=== PATIENT | female | born 1995 | race Hispanic/Latino ===

== ENCOUNTER 2019-03-01 14:39 | Inpatient (IN) | payer BC ==
[2019-03-01 16:03] LABS: #Basophils 0.1 thou/uL (0.0-0.2); #Eosinphils 0.1 thou/uL (0.0-0.7); #Lymphocytes 3.2 thou/uL (1.20-3.40); #Monocytes 0.7 thou/uL (0.11-0.59); #Neutrophils 5.3 thou/uL (1.40-6.50); %Basophils 0.7 % (0.0-1.0); %Eosinophils 1.4 % (0.0-10.0); %Lymphocytes 34.2 % (21.0-51.0); %Monocytes 7.2 % (0.0-10.0); %Neutrophils 56.5 % (42.0-75.0); Hemoglobin 13.7 g/dL (12.0-16.0); Mean Corpuscular HGB CONC 34.1 g/dL (32.0-36.0); Mean Corpuscular Hemoglobin 31.3 pg (27.0-31.0); Mean Corpuscular Volume 91.8 fL (78.0-98.0); Mean Platelet Volume 8.8 fL (7.4-10.4); Platelet Count 331 thou/uL (130-400); Red Blood Cell (RBC) Count 4.37 mill/uL (4.20-5.40); White Blood Cell (WBC) Count 9.3 thou/uL (4.8-10.8)
[2019-03-01 16:06] LABS: BHCG - Serum Negative (NEGATIVE); Pregs Control Background? CLEAR/WHITE (CLR/WHITE); Pregs Control Bar Appear? YES (CONTROL BAR)
[2019-03-01 16:28] LABS: ALT (SGPT) 199 U/L (8-55); AST (SGOT) 731 U/L (5-34); Albumin 4.6 g/dL (3.5-5.0); Alkaline Phosphatase 44 U/L (40-110); Anion Gap 12 mmol/L (10-20); BUN (Urea Nitrogen) 11 mg/dL (7.0-18.7); Bilirubin, Total 0.5 mg/dL (0.2-1.2); Calc. Creatinine Clearance 0 mL/min (70-130); Calcium 9.6 mg/dL (7.8-10.44); Carbon Dioxide 29 mmol/L (22-29); Chloride 102 mmol/L (98-107); Estimated GFR-MDRD Greater than 90; Globulin 3.2 g/dL (2.4-3.5); Glucose 97 mg/dL (70-105); Potassium 3.8 mmol/L (3.5-5.1); Protein, Total 7.8 g/dL (6.0-8.3); Sodium 139 mmol/L (136-145)
[2019-03-01] MEDS ORDERED: Morphine 4 MG/ML VIAL ONE (16:47)
[2019-03-01 17:10] LABS: CK (CPK) Greater than 40000 U/L (29-168)
[2019-03-01 17:16] LABS: Bacteria/HPF None Seen HPF (None Seen); Bilirubin Negative (Negative); Blood, Urine 3+ (Negative); Clarity Clear (Clear); Glucose, Urine (Dipstick) Normal (Negative); Leukocyte Negative Leu/uL (Negative); Nitrite Negative (Negative); Protein, Urine (Dipstick) 20 mg/dL (Neg-Trace); RBC/HPF 0-3 HPF (0-3); Urobilinogen Normal mg/dL (Less than 2); WBC/HPF 0-3 HPF (0-3)
[2019-03-01 18:08] LABS: HBCM Index 0.07 S/CO (0-0.79); HBSAg Index 0.18 S/CO (0-0.99); Hep A IgM AB Non-Reactive (NonReactive); Hep B Surf Ag Non-Reactive S/CO (NonReactive); Hep C IgG Ab Non-Reactive (NonReactive); Hep C Index 0.04 S/CO (0-0.79); Hepatitis B Core IgM Abs Non-Reactive (NonReactive)
[2019-03-01 19:11] VITALS: BMI 25.4
[2019-03-01] MEDS ORDERED: Sodium Chloride 0.9% 1,000 ML IV SCH (19:15)
[2019-03-01] MEDS ORDERED: Acetaminophen 325 MG TAB PO PRN ×2 (19:15→20:34)
[2019-03-01] MEDS ORDERED: HYDROcodone/Acetaminophen 5/325 mg Tablet PO PRN ×2 (19:15)
[2019-03-01] MEDS ORDERED: Ondansetron ODT 4 MG TAB SL PRN (19:15)
[2019-03-01] MEDS ORDERED: Ondansetron PF 4 MG/2 ML Vial IVP PRN (19:15)
[2019-03-01] MEDS ORDERED: Senokot S 8.6-50 MG TAB PO PRN (20:34)
[2019-03-01] MEDS ORDERED: Morphine 4 MG/ML VIAL SLOW IVP PRN (20:36)
[2019-03-01] MEDS: Famotidine 20 MG TAB PO SCH (21:05)
[2019-03-01] MEDS: Sodium Chloride 0.9% 1,000 ML IV SCH (21:05)
[2019-03-01] MEDS: Melatonin 3 MG TAB PO PRN (22:25)
[2019-03-02] MEDS ORDERED: Zolpidem Tartrate 5 MG TAB PO SCH ×3 (00:30→20:45)
--- NOTE | 2019-03-02 00:31 | PDOC.HHP ---
Hospitalist HPI - History of Present Illness Sore legs, elevated CK History of Present Illness: Patient reports going to a 1 hour cycling class on Wednesday and then drove 3 hours back to [place]. Reports her fluid intake has been diminished in the last several days. Reports mild leg pain the day after exercising but then started to hurt much worse. Today she reports a burning sensation and found it difficult to walk any distances without pain. She went to urgent care today, lab work was done and then she was called to come to the ED for an elevated CK and liver enzymes. Denies this happened in the past. ED Course: Patient was given 2L NS and morphine and then admitted to medical for further management. Hospitalist ROS - Review of Systems Constitutional: denies: fever, chills, sweats, weakness, malaise, other Eyes: denies: pain, vision change, conjunctivae inflammation, eyelid inflammation, redness, other ENT: denies: ear pain, ear discharge, nose pain, nose discharge, nose congestion , mouth pain, mouth swelling, throat pain, throat swelling, other Respiratory: denies: cough, dry, shortness of breath, hemoptysis, SOB with excertion, pleuritic pain, sputum, wheezing, other Cardiovascular: denies: chest pain, palpitations, orthopnea, paroxysmal noc. dyspnea, edema, light headedness, other Gastrointestinal: denies: nausea, vomiting, abdominal pain, diarrhea, constipation, melena, hematochezia, other Genitourinary: reports: other (Reports coffee colored urine this am but now clear) Musculoskeletal: reports: leg pain Skin: denies: rash, lesions, naldo, bruising, other Neurological: reports: weakness - Medication Medications: Active Medications Generic Name Dose Route Start Last Admin Trade Name Freq PRN Reason Stop Dose Admin Famotidine 20 mg 03/01/19 21:00 03/01/19 21:05 Pepcid PO 20 mg BID BO Administration Sodium Chloride 1,000 mls @ 200 mls/hr 03/01/19 20:45 03/01/19 21:05 Normal Saline 0.9% IV 1,000 mls .Q5H BO Administration Melatonin 3 mg 03/01/19 22:02 03/01/19 22:25 Melatonin PO 3 mg HS PRN Administration Insomnia Morphine Sulfate 4 mg 03/01/19 20:36 03/01/19 21:04 Morphine SLOW IVP 4 mg Q4H PRN Administration Moderate to Severe Pain (6-10) Hospitalist History - Past Medical History Source: patient Cardiac: reports: no pertinent history Pulmonary: reports: no pertinent history MANAGER STAFFING: reports: no pertinent history Gastrointestinal: reports: no pertinent history Heme/Onc: reports: no pertinent history Hepatobiliary: reports: no pertinent history Psych: reports: Other (ADD) Musculoskeletal: reports: no pertinent history Rheumatologic: reports: no pertinent history Infectious Disease: reports: no pertinent history ENT: reports: no pertinent history Renal/: reports: no pertinent history Endocrine: reports: no pertinent history Dermatology: reports: no pertinent history - Past Surgical History Past Surgical History: reports: Tonsillectomy - Family History Family History: reports: hypertension - Social History Smoking Status: Never smoker Alcohol: reports: Rare Drugs: reports: none Living Situation: With Family - Exam General Appearance: NAD Eye: PERRL ENT: normocephalic atraumatic, moist mucosa Neck: supple, no JVD Heart: RRR, normal peripheral pulses Respiratory: CTAB, normal chest expansion Gastrointestinal: soft, non-tender Extremities: no cyanosis, no edema Skin: normal turgor, no lesions Neurological: cranial nerve grossly intact Musculoskeletal: normal tone, normal strength Psychiatric: normal affect Hospitalist Results - Labs Result Diagrams: 03/01/19 15:40 03/01/19 15:40 Lab results: WBC 9.3 thou/uL (4.8-10.8) 03/01/19 15:40 Hgb 13.7 g/dL (12.0-16.0) 03/01/19 15:40 Hct 40.1 % (36.0-47.0) 03/01/19 15:40 MCV 91.8 fL (78.0-98.0) 03/01/19 15:40 Plt Count 331 thou/uL (130-400) 03/01/19 15:40 Neutrophils % 56.5 % (42.0-75.0) 03/01/19 15:40 Sodium 139 mmol/L (136-145) 03/01/19 15:40 Potassium 3.8 mmol/L (3.5-5.1) 03/01/19 15:40 Chloride 102 mmol/L (98-107) 03/01/19 15:40 Carbon Dioxide 29 mmol/L (22-29) 03/01/19 15:40 BUN 11 mg/dL (7.0-18.7) 03/01/19 15:40 Creatinine 0.69 mg/dL (0.6-1.1) 03/01/19 15:40 Glucose 97 mg/dL (70-105) 03/01/19 15:40 Calcium 9.6 mg/dL (7.8-10.44) 03/01/19 15:40 Total Bilirubin 0.5 mg/dL (0.2-1.2) 03/01/19 15:40 AST 731 U/L (5-34) H 03/01/19 15:40 ALT 199 U/L (8-55) H 03/01/19 15:40 Alkaline Phosphatase 44 U/L (40-110) 03/01/19 15:40 Creatine Kinase Greater than 7[address]69 U/L (29-168) H 03/01/19 15:40 Serum Total Protein 7.8 g/dL (6.0-8.3) 03/01/19 15:40 Albumin 4.6 g/dL (3.5-5.0) 03/01/19 15:40 Urine Ketones Negative mg/dL (Negative) 03/01/19 16:54 Urine Blood 3+ (Negative) A 03/01/19 16:54 Urine Nitrite Negative (Negative) 03/01/19 16:54 Ur Leukocyte Esterase Negative Kristi/uL (Negative) 03/01/19 16:54 Urine RBC 0-3 HPF (0-3) 03/01/19 16:54 Urine WBC 0-3 HPF (0-3) 03/01/19 16:54 Ur Squamous Epith Cells 4-6 HPF (0-3) A 03/01/19 16:54 Urine Bacteria None Seen HPF (None Seen) 03/01/19 16:54 Hospitalist H&P A/P - Problem (1) Rhabdomyolysis Code(s): M62.82 - RHABDOMYOLYSIS Status: Acute (2) Elevated liver enzymes Code(s): R74.8 - ABNORMAL LEVELS OF OTHER SERUM ENZYMES Status: Acute (3) ADD (attention deficit disorder) Code(s): F98.8 - OTH BEHAV/EMOTN DISORD W ONSET USLY OCCUR IN CHLDHD AND ADOL Status: Chronic - Plan Plan: NS 200mls/hr, morphine for pain Will recheck labs in AM, will add CK SCD for DVT prevention, pepcid 20mg bid for stress ulcer prevention Case discussed with Dr. Gil who agrees with plan.
[2019-03-02] MEDS: Sodium Chloride 0.9% 1,000 ML IV SCH ×6 (00:41→20:32)
[2019-03-02 06:07] LABS: #Eosinphils 0.2 thou/uL (0.0-0.7); #Lymphocytes 3.3 thou/uL (1.20-3.40); #Monocytes 0.6 thou/uL (0.11-0.59); #Neutrophils 3.9 thou/uL (1.40-6.50); %Basophils 0.3 % (0.0-1.0); %Eosinophils 2.8 % (0.0-10.0); %Lymphocytes 41.3 % (21.0-51.0); %Monocytes 6.9 % (0.0-10.0); %Neutrophils 48.6 % (42.0-75.0); Hemoglobin 10.9 g/dL (12.0-16.0); Mean Corpuscular HGB CONC 34.2 g/dL (32.0-36.0); Mean Corpuscular Hemoglobin 32.3 pg (27.0-31.0); Mean Corpuscular Volume 94.3 fL (78.0-98.0); Mean Platelet Volume 8.9 fL (7.4-10.4); Platelet Count 230 thou/uL (130-400); RBC Distribution Width 10.9 % (11.5-14.5); Red Blood Cell (RBC) Count 3.37 mill/uL (4.20-5.40); White Blood Cell (WBC) Count 8.1 thou/uL (4.8-10.8)
[2019-03-02 06:38] LABS: ALT (SGPT) 166 U/L (8-55); AST (SGOT) 594 U/L (5-34); Alkaline Phosphatase 28 U/L (40-110); Anion Gap 10 mmol/L (10-20); BUN (Urea Nitrogen) 7 mg/dL (7.0-18.7); Bilirubin, Total 0.3 mg/dL (0.2-1.2); Calc. Creatinine Clearance 164 mL/min (70-130); Calcium 7.7 mg/dL (7.8-10.44); Carbon Dioxide 22 mmol/L (22-29); Chloride 108 mmol/L (98-107); Estimated GFR-MDRD Greater than 90; Globulin 2.1 g/dL (2.4-3.5); Glucose 92 mg/dL (70-105); Potassium 3.7 mmol/L (3.5-5.1); Protein, Total 5.1 g/dL (6.0-8.3); Sodium 136 mmol/L (136-145)
[2019-03-02 06:54] LABS: CK (CPK) Greater than 40000 U/L (29-168)
[2019-03-02] MEDS ORDERED: NORGESTIMATE ETHINYL ESTRADIOL PO SCH (09:00)
[2019-03-02] MEDS: Famotidine 20 MG TAB PO SCH ×2 (11:26→20:31)
[2019-03-02] MEDS: Morphine 2 MG/ML SYRINGE SLOW IVP PRN (11:58)
--- NOTE | 2019-03-02 15:28 | PDOC.HOSPP ---
- Subjective Encounter Date: 03/02/19 Encounter Time: 09:20 Subjective: still has bodyaches, no sob or palp parents at bedside - Objective Vital Signs & Weight: Vital Signs (12 hours) Temp Pulse Resp BP BP Pulse Ox 03/02/19 11:35 97.6 F 84 20 127/77 98 03/02/19 08:00 98.2 F 83 20 103/63 98 03/02/19 04:57 74 96/57 L 03/02/19 04:00 98.1 F 74 16 90/55 L 99 Weight Weight 130 lb 9 oz I&O: 03/01/19 03/02/19 03/03/19 06:59 06:59 06:59 Intake Total 240 Balance 240 Result Diagrams: 03/02/19 05:49 03/02/19 05:49 Hospitalist ROS - Medication Medications: Active Medications Generic Name Dose Route Start Last Admin Trade Name Freq PRN Reason Stop Dose Admin Famotidine 20 mg 03/01/19 21:00 03/02/19 11:26 Pepcid PO 20 mg BID BO Administration Sodium Chloride 1,000 mls @ 200 mls/hr 03/01/19 20:45 03/02/19 09:15 Normal Saline 0.9% IV 1,000 mls .Q5H BO Administration Melatonin 3 mg 03/01/19 22:02 03/01/19 22:25 Melatonin PO 3 mg HS PRN Administration Insomnia Morphine Sulfate 2 mg 03/01/19 20:36 03/02/19 11:58 Morphine SLOW IVP 2 mg Q4H PRN Administration Moderate Pain (4-6) Morphine Sulfate 4 mg 03/01/19 20:36 03/01/19 21:04 Morphine SLOW IVP 4 mg Q4H PRN Administration Moderate to Severe Pain (6-10) - Exam General Appearance: NAD, awake alert Eye: PERRL, anicteric sclera ENT: no oropharyngeal lesions, moist mucosa Neck: supple, no JVD Heart: RRR, no murmur Respiratory: no wheezes, no rales Gastrointestinal: soft, non-tender, non-distended, normal bowel sounds Extremities: no cyanosis, no edema Neurological: cranial nerve grossly intact, no focal deficits Psychiatric: normal affect, A&O x 3 Hosp A/P (1) Rhabdomyolysis Code(s): M62.82 - RHABDOMYOLYSIS Status: Acute Qualifiers: Rhabdomyolysis type: traumatic (2) Elevated liver enzymes Code(s): R74.8 - ABNORMAL LEVELS OF OTHER SERUM ENZYMES Status: Acute (3) ADD (attention deficit disorder) Code(s): F98.8 - OTH BEHAV/EMOTN DISORD W ONSET USLY OCCUR IN CHLDHD AND ADOL Status: Chronic Qualifiers: Hyperactivity presence: absent Qualified Code(s): F98.8 - Other specified behavioral and emotional disorders with onset usually occurring in childhood and adolescence (4) Chronic anemia Code(s): D64.9 - ANEMIA, UNSPECIFIED Status: Chronic - Plan ck levels are still >40147 LFT's are slowly trending down, elevated sec to rhado to amb in hallway d/w parents and patient at bedside hemostable continue iv hydration
[2019-03-02] MEDS ORDERED: Mag-Al 1200 mg/1200 mg/30 ML UDCUP PO PRN (18:54)
[2019-03-03] MEDS: Sodium Chloride 0.9% 1,000 ML IV SCH ×5 (02:04→22:44)
[2019-03-03 07:37] LABS: ALT (SGPT) 250 U/L (8-55); AST (SGOT) 795 U/L (5-34); Albumin 3.5 g/dL (3.5-5.0); Alkaline Phosphatase 30 U/L (40-110); Anion Gap 9 mmol/L (10-20); BUN (Urea Nitrogen) 6 mg/dL (7.0-18.7); Bilirubin, Total 0.3 mg/dL (0.2-1.2); Calc. Creatinine Clearance 139 mL/min (70-130); Calcium 8.6 mg/dL (7.8-10.44); Carbon Dioxide 27 mmol/L (22-29); Chloride 107 mmol/L (98-107); Estimated GFR-MDRD Greater than 90; Globulin 2.4 g/dL (2.4-3.5); Glucose 84 mg/dL (70-105); Potassium 3.9 mmol/L (3.5-5.1); Protein, Total 5.9 g/dL (6.0-8.3); Sodium 139 mmol/L (136-145)
[2019-03-03 08:05] LABS: CK (CPK) Greater than 40000 U/L (29-168)
[2019-03-03] MEDS: Famotidine 20 MG TAB PO SCH ×2 (08:44→20:34)
[2019-03-03] MEDS ORDERED: TRI SPRINTEC PO SCH (09:00)
--- NOTE | 2019-03-03 12:54 | PDOC.HOSPP ---
- Subjective Encounter Date: 03/03/19 Encounter Time: 11:20 Subjective: Pain in the legs.. - Objective Vital Signs & Weight: Vital Signs (12 hours) Temp Pulse Resp BP BP Pulse Ox 03/03/19 08:40 99 03/03/19 08:00 98.0 F 88 20 124/80 99 03/03/19 04:00 98.2 F 81 20 106/67 96 Weight Weight 130 lb 9 oz I&O: 03/02/19 03/03/19 03/04/19 06:59 06:59 06:59 Intake Total 6080 Balance 6080 Result Diagrams: 03/02/19 05:49 03/03/19 06:47 Hospitalist ROS - Medication Medications: Active Medications Generic Name Dose Route Start Last Admin Trade Name Freq PRN Reason Stop Dose Admin Famotidine 20 mg 03/01/19 21:00 03/03/19 08:44 Pepcid PO Not Given BID BO Sodium Chloride 1,000 mls @ 200 mls/hr 03/01/19 20:45 03/03/19 06:29 Normal Saline 0.9% IV 1,000 mls .Q5H BO Administration Melatonin 3 mg 03/01/19 22:02 03/01/19 22:25 Melatonin PO 3 mg HS PRN Administration Insomnia Morphine Sulfate 2 mg 03/01/19 20:36 03/02/19 11:58 Morphine SLOW IVP 2 mg Q4H PRN Administration Moderate Pain (4-6) Morphine Sulfate 4 mg 03/01/19 20:36 03/01/19 21:04 Morphine SLOW IVP 4 mg Q4H PRN Administration Moderate to Severe Pain (6-10) - Exam General Appearance: NAD, awake alert Neck: no JVD Heart: RRR Respiratory: CTAB Gastrointestinal: soft Extremities: no edema (Areas of tenderness..) Neurological: no weakness Psychiatric: normal affect, A&O x 3 Hosp A/P (1) Elevated liver enzymes Code(s): R74.8 - ABNORMAL LEVELS OF OTHER SERUM ENZYMES Status: Acute (2) Rhabdomyolysis Code(s): M62.82 - RHABDOMYOLYSIS Status: Acute Qualifiers: Rhabdomyolysis type: traumatic (3) ADD (attention deficit disorder) Code(s): F98.8 - OTH BEHAV/EMOTN DISORD W ONSET USLY OCCUR IN CHLDHD AND ADOL Status: Chronic Qualifiers: Hyperactivity presence: absent Qualified Code(s): F98.8 - Other specified behavioral and emotional disorders with onset usually occurring in childhood and adolescence - Plan f/u CPK, BMP Continue hydration..
[2019-03-03] MEDS: Morphine 2 MG/ML SYRINGE SLOW IVP PRN (14:07)
[2019-03-03] MEDS ORDERED: Zolpidem Tartrate 5 MG TAB PO SCH (20:45)
[2019-03-04] MEDS: Morphine 2 MG/ML SYRINGE SLOW IVP PRN (00:21)
[2019-03-04] MEDS: Melatonin 3 MG TAB PO PRN (01:29)
[2019-03-04] MEDS: Sodium Chloride 0.9% 1,000 ML IV SCH ×5 (03:45→22:53)
[2019-03-04 07:39] LABS: Anion Gap 11 mmol/L (10-20); BUN (Urea Nitrogen) 8 mg/dL (7.0-18.7); Calc. Creatinine Clearance 146 mL/min (70-130); Calcium 8.5 mg/dL (7.8-10.44); Carbon Dioxide 24 mmol/L (22-29); Chloride 107 mmol/L (98-107); Estimated GFR-MDRD Greater than 90; Glucose 82 mg/dL (70-105); Potassium 3.9 mmol/L (3.5-5.1); Sodium 138 mmol/L (136-145)
[2019-03-04 08:05] LABS: CK (CPK) 25931 U/L (29-168)
[2019-03-04] MEDS: Famotidine 20 MG TAB PO SCH ×2 (08:55→20:15)
--- NOTE | 2019-03-04 11:35 | PDOC.HOSPP ---
- Subjective Encounter Date: 03/04/19 Encounter Time: 10:20 Subjective: No complaint.. - Objective Vital Signs & Weight: Vital Signs (12 hours) Temp Pulse Resp BP Pulse Ox 03/04/19 08:50 99 03/04/19 07:57 98.2 F 75 18 120/77 99 Weight Weight 130 lb 9 oz I&O: 03/03/19 03/04/19 03/05/19 06:59 06:59 06:59 Intake Total 6080 6450 Balance 6080 6450 Result Diagrams: 03/02/19 05:49 03/04/19 06:45 Hospitalist ROS - Medication Medications: Active Medications Generic Name Dose Route Start Last Admin Trade Name Freq PRN Reason Stop Dose Admin Famotidine 20 mg 03/01/19 21:00 03/04/19 08:55 Pepcid PO Not Given BID BO Sodium Chloride 1,000 mls @ 200 mls/hr 03/01/19 20:45 03/04/19 08:55 Normal Saline 0.9% IV 1,000 mls .Q5H BO Administration Melatonin 3 mg 03/01/19 22:02 03/04/19 01:29 Melatonin PO 3 mg HS PRN Administration Insomnia Morphine Sulfate 2 mg 03/01/19 20:36 03/04/19 00:21 Morphine SLOW IVP 2 mg Q4H PRN Administration Moderate Pain (4-6) Morphine Sulfate 4 mg 03/01/19 20:36 03/01/19 21:04 Morphine SLOW IVP 4 mg Q4H PRN Administration Moderate to Severe Pain (6-10) - Exam General Appearance: NAD, awake alert Neck: no JVD Heart: RRR Respiratory: CTAB Gastrointestinal: soft Extremities: no edema Neurological: no weakness Musculoskeletal: normal strength Psychiatric: A&O x 3 Hosp A/P (1) Elevated liver enzymes Code(s): R74.8 - ABNORMAL LEVELS OF OTHER SERUM ENZYMES Status: Acute (2) Rhabdomyolysis Code(s): M62.82 - RHABDOMYOLYSIS Status: Acute Qualifiers: Rhabdomyolysis type: traumatic (3) ADD (attention deficit disorder) Code(s): F98.8 - OTH BEHAV/EMOTN DISORD W ONSET USLY OCCUR IN CHLDHD AND ADOL Status: Chronic Qualifiers: Hyperactivity presence: absent Qualified Code(s): F98.8 - Other specified behavioral and emotional disorders with onset usually occurring in childhood and adolescence - Plan CPK is decreasing.. Continue hydration.. Possible discharge tomorrow.
[2019-03-04] MEDS ORDERED: Zolpidem Tartrate 5 MG TAB PO SCH (22:45)
[2019-03-05] MEDS: Sodium Chloride 0.9% 1,000 ML IV SCH (04:56)
[2019-03-05 06:03] LABS: Anion Gap 13 mmol/L (10-20); BUN (Urea Nitrogen) 8 mg/dL (7.0-18.7); Calc. Creatinine Clearance 149 mL/min (70-130); Calcium 8.8 mg/dL (7.8-10.44); Carbon Dioxide 22 mmol/L (22-29); Chloride 106 mmol/L (98-107); Estimated GFR-MDRD Greater than 90; Glucose 91 mg/dL (70-105); Potassium 3.8 mmol/L (3.5-5.1); Sodium 137 mmol/L (136-145)
[2019-03-05 06:29] LABS: CK (CPK) 12842 U/L (29-168)
[2019-03-05 07:36] VITALS: BP 114/75; TEMP 98.6
[2019-03-05] MEDS: Famotidine 20 MG TAB PO SCH (08:40)
--- NOTE | 2019-03-06 11:01 | DIS ---
DATE OF ADMISSION: 03/01/2019 DATE OF DISCHARGE: 03/05/2019 ADMITTING DIAGNOSIS: Rhabdomyolysis. DISCHARGE DIAGNOSIS: Rhabdomyolysis. CONTROL OFFICER: None. PROCEDURE: IV fluid administration. COURSE OF HOSPITALIZATION: Uncomplicated, responded well to management. The patient's CPK has decreased significantly. She is clinically stable at this time being discharged home. DISCHARGE MEDICATIONS: Please see discharge medication reconciliation sheet. The patient is to follow up with her primary care physician. PHYSICAL EXAMINATION: GENERAL: Today, the patient is alert and oriented, in no distress. VITAL SIGNS: Her latest vital signs show a temperature of 98.6, pulse rate 73, respiratory rate 16, and blood pressure 114/75. HEAD AND NECK: Normal. HEART: She has regular S1 and S2. LUNGS: Clear. ABDOMEN: Benign. EXTREMITIES: Limbs show no edema. NEUROLOGIC: She moves all extremities. LABORATORY DATA: Chemistry and lytes were reviewed. BUN is 8, creatinine 0.55. CPK is 12,842 from 25,931 yesterday. She is being discharged home. She does not have any hyperkalemia. Potassium is satisfactory and she is encouraged to increase her fluid intake. DISCHARGE TIME: 32 minutes. Job ID: [id number]
== END 2019-03-05 09:38 | disposition home or self-care (01) | DRG 566 ==
LOC: ERS 14:39 → T4-A 18:37
PROVIDERS: ADMIT Family Medicine; ATTEND Family Medicine
DX: T79.6XXA Traumatic ischemia of muscle, initial encounter (principal); I10 Essential (primary) hypertension; R74.8 Abnormal levels of other serum enzymes; D64.9 Anemia, unspecified; F98.8 Other specified behavioral and emotional disorders with onset usually occurring in childhood and adolescence; Z88.1 Allergy status to other antibiotic agents
CPT/HCPCS: 36415; 80048; 80053; 80074; 81003; 81015; 82550; 84703; 85025; 85652; 86140; 96361; 96374; J2270